=== PATIENT | male | born 1990 | race Caucasian/White ===

== ENCOUNTER 2021-07-04 20:18 | Emergency (ER) | payer OTHER ==
[2021-07-04 20:48] VITALS: BP 124/82; PULSE 99; TEMP 98.3; BMI 29.5
[2021-07-04 22:27] LABS: BASO % 0.4 % (0-2.0); EOS % 0.2 % (0-4.5); HEMATOCRIT 42.2 % (35.4-49); HEMOGLOBIN 14.1 GM/dL (11.7-16.9); MCHC 33.4 g/dl (32.0-35.9); MEAN CELL VOLUME 86.7 fl (80-96); MONO % 8.8 % (3.8-10.2); NEUT % 65.6 % (42.8-82.8); PLATELET COUNT 163 10^3/uL (134-434); RBC 4.87 M/mm3 (4.00-5.60); RDW 14.3 % (11.9-15.9); WHITE BLOOD COUNT 6.8 K/mm3 (4.0-10.0)
[2021-07-04 23:33] LABS: ALBUMIN 4.6 g/dl (3.4-5.0); BILIRUBIN,TOTAL 0.6 mg/dL (0.2-1); CALCIUM 9.1 mg/dL (8.5-10.1); CREATININE 1.1 mg/dL (0.55-1.3); TOT PROT 8.4 g/dl (6.4-8.2)
== END 2021-07-05 00:34 | disposition home or self-care (01) ==
LOC: JER 20:18
DX: R63.0 Anorexia (principal)
CPT/HCPCS: 36415; 74018-TC-FY; 80053; 83735; 84443; 85025; 99284-25

== ENCOUNTER 2022-08-25 23:02 | Emergency (ER) | payer OTHER ==
[2022-08-25 23:10] VITALS: BMI 31.0
[2022-08-25] MEDS ORDERED: SODIUM CHLORIDE 0.9% 500 ML INFUS.BAG IV ONE (23:52)
[2022-08-25] MEDS ORDERED: ONDANSETRON 4 MG/2 ML VIAL IVPUSH ONE (23:52)
[2022-08-25] MEDS ORDERED: ONDANSETRON 4 MG/2 ML VIAL ONE (23:59)
[2022-08-26 00:43] LABS: HEMATOCRIT 47.3 % (35.4-49); LYMPH % 2.3 % (8-40); MCH 29.6 pg (25.7-33.7); MCHC 33.8 g/dl (32.0-35.9); MEAN CELL VOLUME 87.5 fl (80-96); MEAN PLT VOLUME 9.3 fl (7.5-11.1); MONO % 7.3 % (3.8-10.2); NEUT % 90.4 % (42.8-82.8); PLATELET COUNT 225 10^3/uL (134-434); RBC 5.41 M/mm3 (4.00-5.60); RDW 14.4 % (11.9-15.9); WHITE BLOOD COUNT 11.4 K/mm3 (4.0-10.0)
[2022-08-26 01:05] LABS: ALBUMIN 4.2 g/dl (3.4-5.0); CALCIUM 9.2 mg/dL (8.5-10.1)
[2022-08-26 01:06] LABS: BLOOD UREA NITROGEN 14.8 mg/dL (7-18)
[2022-08-26 01:08] LABS: CREATININE 1.1 mg/dL (0.55-1.3)
[2022-08-26 01:10] LABS: BILIRUBIN,TOTAL 5.2 mg/dL (0.2-1); TOT PROT 7.8 g/dl (6.4-8.2)
[2022-08-26] MEDS ORDERED: METOCLOPRAMIDE HCL INJECTION 10 MG/2 ML VIAL IVPB ONE (01:10)
[2022-08-26] MEDS ORDERED: METOCLOPRAMIDE HCL INJECTION 10 MG/2 ML VIAL ONE (01:14)
[2022-08-26] MEDS ORDERED: morphine CARPU-JECT 2 MG/1 ML DISP.SYRIN IVPUSH ONE (05:00)
[2022-08-26] MEDS ORDERED: SODIUM CHLORIDE 1,000 ML IV SCH ×2 (06:00→08:30)
[2022-08-26] MEDS ORDERED: PIPERACILLIN/TAZOB 4.5 GM 4.5 GM in DEXTROSE 5%-WATER 100 ML IVPB ONE (07:06)
[2022-08-26] MEDS ORDERED: ACETAMINOPHEN 1000 MG/100 ML BAG IVPB ONE (07:28)
[2022-08-26] MEDS ORDERED: ACETAMINOPHEN INJECTION 100 ML IVPB ONE (07:36)
[2022-08-26] MEDS ORDERED: LACTATED RINGERS SOLUTION 1,000 ML/1,000 ML INFUS.BAG IV SCH (07:45)
[2022-08-26 08:10] LABS: BILIRUBIN,DIRECT 4.1 mg/dL (0.0-0.2)
[2022-08-26 08:40] VITALS: BP 157/107; PULSE 108; RESP 32; TEMP 97.4
== END 2022-08-26 11:07 | disposition short-term general hospital (02) ==
LOC: JER 23:02 → JERBED 08-26 02:14 → UNDOADMIN 08-26 02:14 → JER 08-26 11:07
PROC: 3E033GC Introduction of Other Therapeutic Substance into Peripheral Vein, Percutaneous Approach (ICD-10-PCS; principal; 2022-08-25)
DX: K85.90 Acute pancreatitis without necrosis or infection, unspecified (principal); R11.2 Nausea with vomiting, unspecified; K80.21 Calculus of gallbladder without cholecystitis with obstruction; J81.0 Acute pulmonary edema; Z20.822 Contact with and (suspected) exposure to COVID-19
CPT/HCPCS: 0241U-QW; 36415; 71045-TC-FY; 74177-TC; 76705-TC; 80053; 80061; 82248; 83690; 85025; 93005; 93010; 99285-25; Q9967